=== PATIENT | female | born 1985 | race Caucasian/White ===

== ENCOUNTER 2017-06-10 22:03 | Emergency (ER) | payer OTHER ==
[~2017-06-10] VITALS: Ht 157.5 cm; Wt 70.3 kg
[2017-06-10] MEDS ORDERED: SYNTHROID300 MCG (22:13)
== END 2017-06-11 11:16 | disposition home or self-care (01) ==
LOC: ER 22:03
DX: G43.809 Other migraine, not intractable, without status migrainosus (principal); R10.2 Pelvic and perineal pain; R11.10 Vomiting, unspecified; R42 Dizziness and giddiness

== ENCOUNTER 2018-01-20 14:39 | Emergency (ER) | payer OTHER ==
[~2018-01-20] VITALS: Ht 157.5 cm; Wt 69.9 kg
[~2018-01-20 14:39] MED LIST: SYNTHROID300 MCG
== END 2018-01-20 21:01 | disposition home or self-care (01) ==
LOC: ER 14:39
DX: K52.9 Noninfective gastroenteritis and colitis, unspecified (principal); E86.0 Dehydration

== ENCOUNTER 2018-09-20 11:10 | Emergency (ER) | payer OTHER ==
[~2018-09-20] VITALS: Ht 157.5 cm; Wt 72.1 kg
== END 2018-09-20 19:30 | disposition home or self-care (01) ==
LOC: ER 11:10
DX: K29.70 Gastritis, unspecified, without bleeding (principal)

== ENCOUNTER 2019-10-11 14:57 | Outpatient (CLI) | payer OTHER | END 2019-10-11 14:59 | disposition home or self-care (01) | LOC: RAD 14:57 | PROVIDERS: ATTEND General Practice | DX: M79.671 Pain in right foot (principal) ==

== ENCOUNTER 2019-12-14 12:30 | Emergency (ER) | payer OTHER ==
[~2019-12-14] VITALS: Ht 160 cm; Wt 68.0 kg
[2019-12-14] MEDS ORDERED: PAIN RELIEVER500 MG PO (19:55)
[2019-12-14] MEDS ORDERED: ZYRTEC10 M3 PO (19:57)
== END 2019-12-14 20:57 | disposition home or self-care (01) ==
LOC: ER 12:30
DX: B34.9 Viral infection, unspecified (principal); Z20.828 Contact with and (suspected) exposure to other viral communicable diseases

== ENCOUNTER 2021-07-04 12:01 | Emergency (ER) | payer OTHER ==
[~2021-07-04] VITALS: Ht 162.6 cm; Wt 99.8 kg
[~2021-07-04 12:01] MED LIST changes: +PAIN RELIEVER500 MG PO; +ZYRTEC10 M3 PO
[2021-07-04] MEDS ORDERED: DOLOGEN CAPLET1 EACH PO (16:44)
== END 2021-07-04 17:12 | disposition home or self-care (01) ==
LOC: ER 12:01
DX: S00.83XA Contusion of other part of head, initial encounter (principal); S90.01XA Contusion of right ankle, initial encounter; S20.229A Contusion of unspecified back wall of thorax, initial encounter; W10.8XXA Fall (on) (from) other stairs and steps, initial encounter; Y93.9 Activity, unspecified; Y92.9 Unspecified place or not applicable; Y99.9 Unspecified external cause status; Z88.6 Allergy status to analgesic agent; Z88.8 Allergy status to other drugs, medicaments and biological substances